=== PATIENT | male | born 2000 | race Caucasian/White ===

== ENCOUNTER 2021-04-10 20:24 | Emergency (ER) | payer BC ==
[~2021-04-10] VITALS: Ht 182.9 cm; Wt 80.5 kg
[2021-04-10 21:01] VITALS: BP 123/74; TEMP 98.7
[2021-04-10] MEDS ORDERED: PREDNISONE20 MG PO (23:49)
[2021-04-10 23:55] VITALS: PULSE 85
== END 2021-04-10 23:55 | disposition home or self-care (01) ==
LOC: COL.ER 20:24
DX: S80.862A Insect bite (nonvenomous), left lower leg, initial encounter (principal); W57.XXXA Bitten or stung by nonvenomous insect and other nonvenomous arthropods, initial encounter
CPT/HCPCS: J7512